=== PATIENT | female | born 1995 | race Caucasian/White ===

== ENCOUNTER 2016-10-07 03:11 | Inpatient (IN) | payer OTHER ==
[~2016-10-07] VITALS: Ht 172.7 cm; Wt 80.0 kg
[2016-10-07] VITALS (7 sets, daily range): BP systolic 101–166; BP diastolic 55–72; PULSE 79–107; RESP 16–22; TEMP 97.5–98.9; O2SAT 98–100
[2016-10-07] MEDS ORDERED: DIPHTH/TETANUS/ACEL PERTUSSIS (BOOSTER) 0.5 ML VIAL/PFS IM ONE (03:15)
[2016-10-07] MEDS ORDERED: ceFAZolin 2 GM PREMIX 50 ML ONE (03:15)
[2016-10-07] MEDS ORDERED: fentaNYL CITRATE 250 MCG/5 ML AMP ONE (03:23)
[2016-10-07] MEDS ORDERED: ETOMIDATE 20 MG/10 ML VIAL ONE (03:35)
[2016-10-07] MEDS ORDERED: IOHEXOL 350 MG/ML 10 ML VIAL (for RAD DIAG) IV ONE (03:35)
[2016-10-07] MEDS ORDERED: LIDOCAINE 1%/EPINEPHrine 1:100,000 SOLN 20 ML VIAL ONE (03:36)
[2016-10-07 03:41] LABS: I-STAT POTASSIUM 4.2 MMOL/L (3.5-4.9)
[2016-10-07 03:42] LABS: AUTOMATED NEUTROPHIL # 6.9 TH/MM3 (1.8-7.7); BASOPHIL # 0.1 TH/MM3 (0-0.2); BASOPHIL % 1.2 % (0.0-2.0); EOSINOPHIL # 0.1 TH/MM3 (0-0.4); EOSINOPHIL % 0.8 % (0.0-4.0); HEMATOCRIT 38.2 % (35.0-46.0); HEMO FLAGS DIFF FINAL; LYMPH % 32.8 % (9.0-44.0); LYMPHOCYTE # 3.8 TH/MM3 (1.0-4.8); MEAN CELL VOLUME 77.3 FL (80.0-100.0); MEAN CORPUSCULAR HEMOGLOBIN 25.1 PG (27.0-34.0); MEAN CORPUSCULAR HGB CONC 32.4 % (32.0-36.0); MONO % 5.8 % (0.0-8.0); NEUT % 59.4 % (16.0-70.0); PLATELET COUNT 411 TH/MM3 (150-450); RED BLOOD COUNT 4.94 MIL/MM3 (4.00-5.30); WHITE BLOOD COUNT 11.5 TH/MM3 (4.0-11.0)
[2016-10-07] MEDS ORDERED: MIDAZOLAM HCL 5 MG/ML VIAL (1 ML) ONE (03:48)
[2016-10-07 03:57] LABS: APTT (PATIENT) 23.1 SEC (24.3-30.1); PROTHROMBIN TIME - PATIENT 11.2 SEC (9.8-11.6)
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
[2016-10-07] MEDS ORDERED: MISCELLANEOUS NURSING INFORMATION XX SCH (04:15)
[2016-10-07] MEDS ORDERED: SODIUM CHLORIDE 0.9% FLUSH 5 ML FLUSH IVF PRN (04:15)
[2016-10-07] MEDS ORDERED: ACETAMINOPHEN/HYDROcodone 325 MG/5 MG TAB PO PRN (04:15)
[2016-10-07] MEDS ORDERED: CHLORHEXIDINE GLUCONATE 2 % 1 PACK (2 CLOTHS) TOP PRN (04:15)
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
--- NOTE | 2016-10-07 04:44 | RADRPT ---
EXAM DATE/TIME: 10/07/2016 03:51 [facility] COMPARISON: CHEST SINGLE AP, October 07, 2016, 3:08. INDICATIONS : Left sided chest tube placement. MEDICAL HISTORY : None. SURGICAL HISTORY : None. ENCOUNTER: Subsequent ACUITY: 1 day PAIN SCORE: Non-responsive. LOCATION: Left chest FINDINGS: Left chest tube present without pneumothorax. No significant effusion identified. Minimal basilar dep endent atelectasis in the lungs. There is air in the left chest wall. CONCLUSION: 1. Placement of left chest tube. No pneumothorax or significant effusion identified. Cyril Rtoh MD on October 07, 2016 at 4:42 Board Certified Radiologist. This report was verified electronically.
[2016-10-07] MEDS ORDERED: MORPHINE SULFATE 4 MG/ML INJ IV PUSH ONE (04:45)
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
[2016-10-07] MEDS: ONDANSETRON HCL 4 MG/2 ML VIAL IV PRN ×2 (04:48→18:26)
[2016-10-07] MEDS: HYDROmorphone HCL PF 1 MG/ML VIAL IVP PRN ×3 (04:49→20:53)
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
[2016-10-07] MEDS: ACETAMINOPHEN/HYDROcodone 325 MG/5 MG TAB PO PRN ×5 (07:36→23:29)
[2016-10-07] MEDS: DOCUSATE SODIUM 50 MG/SENNA 8.6 MG TAB PO SCH ×2 (10:54→20:03)
[2016-10-07] MEDS: FAMOTIDINE 20 MG TAB PO SCH ×2 (10:55→20:03)
[2016-10-07] MEDS: METHOCARBAMOL 500 MG TAB PO SCH ×3 (15:18→23:29)
[2016-10-08 00:05] VITALS: BP 132/74; PULSE 90; RESP 20; TEMP 97.7; O2SAT 100
[2016-10-08] MEDS: HYDROmorphone HCL PF 1 MG/ML VIAL IVP PRN ×3 (00:08→06:12)
[2016-10-08 00:42] VITALS: O2SAT 96
[2016-10-08] MEDS: ONDANSETRON HCL 4 MG/2 ML VIAL IV PRN (03:00)
[2016-10-08] MEDS: ACETAMINOPHEN/HYDROcodone 325 MG/5 MG TAB PO PRN ×5 (03:37→20:45)
[2016-10-08] MEDS ORDERED: CHLORHEXIDINE GLUCONATE 2 % 1 PACK (2 CLOTHS) TOP SCH (04:00)
[2016-10-08 05:41] LABS: AUTOMATED NEUTROPHIL # 5.5 TH/MM3 (1.8-7.7); BASOPHIL % 0.5 % (0.0-2.0); EOSINOPHIL # 0.2 TH/MM3 (0-0.4); EOSINOPHIL % 1.7 % (0.0-4.0); HEMATOCRIT 28.3 % (35.0-46.0); HEMO FLAGS DIFF FINAL; LYMPH % 27.4 % (9.0-44.0); LYMPHOCYTE # 2.6 TH/MM3 (1.0-4.8); MEAN CORPUSCULAR HEMOGLOBIN 25.3 PG (27.0-34.0); MEAN CORPUSCULAR HGB CONC 32.9 % (32.0-36.0); MONO % 12.3 % (0.0-8.0); NEUT % 58.1 % (16.0-70.0); PLATELET COUNT 243 TH/MM3 (150-450); RED BLOOD COUNT 3.68 MIL/MM3 (4.00-5.30); RED CELL DISTRIBUTION WIDTH 17.5 % (11.6-17.2); WHITE BLOOD COUNT 9.5 TH/MM3 (4.0-11.0)
--- NOTE | 2016-10-08 06:20 | RADRPT ---
EXAM DATE/TIME: 10/08/2016 05:39 [facility] COMPARISON: CHEST SINGLE AP, October 07, 2016, 3:51. INDICATIONS : Shortness of breath. MEDICAL HISTORY : Hemothorax. SURGICAL HISTORY : Chest tube. ENCOUNTER: Subsequent ACUITY: 2 days PAIN SCORE: Non-responsive. LOCATION: Bilateral chest FINDINGS: There is a left chest tube with a small left pneumothorax that has developed since October 07. Mild bas ilar airspace disease. Subcutaneous air left chest wall. CONCLUSION: 1. Left chest tube with development of small left-sided pneumothorax since October 07. Cyril Roth MD on October 08, 2016 at 6:18 Board Certified Radiologist. This report was verified electronically.
[2016-10-08 06:38] LABS: ANION GAP 7 MEQ/L (5-15); AST (GOT) 23 U/L (16-38); BICARBONATE 27.9 MEQ/L (21.0-32.0); BLOOD UREA NITROGEN 7 MG/DL (7-18); CHLORIDE 106 MEQ/L (98-107); GLOMERULAR FILTRATION RATE 123 ML/MIN (>89); POTASSIUM 3.4 MEQ/L (3.5-5.1); SODIUM (NA) 141 MEQ/L (136-145)
[2016-10-08 06:44] LABS: ALKALINE PHOSPHATASE 51 U/L (45-117); ALT (GPT) 15 U/L (9-42); BETA HCG QUANT LESS THAN 1 MIU/ML (0-5); TOTAL BILIRUBIN ADULT 0.2 MG/DL (0.2-1.0)
[2016-10-08 08:00] VITALS: BP 122/66; PULSE 104; RESP 17; TEMP 98.6; O2SAT 99
[2016-10-08] MEDS: FAMOTIDINE 20 MG TAB PO SCH ×2 (08:27→20:44)
[2016-10-08] MEDS: METHOCARBAMOL 500 MG TAB PO SCH ×3 (08:27→23:38)
[2016-10-08] MEDS: DOCUSATE SODIUM 50 MG/SENNA 8.6 MG TAB PO SCH ×2 (09:00→20:44)
[2016-10-08 12:00] VITALS: BP 109/56; PULSE 98; RESP 16; TEMP 98.4; O2SAT 98
[2016-10-08 16:00] VITALS: BP 122/56; PULSE 84; RESP 17; TEMP 97.8; O2SAT 98
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
[2016-10-08 20:00] VITALS: BP 121/58; PULSE 82; RESP 16; TEMP 97.6; O2SAT 100
[2016-10-09] VITALS: BP 129/62; PULSE 85; RESP 16; TEMP 97; O2SAT 97
[2016-10-09] MEDS: ACETAMINOPHEN/HYDROcodone 325 MG/5 MG TAB PO PRN ×3 (00:41→12:38)
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
[2016-10-09 08:00] VITALS: BP 119/56; PULSE 89; RESP 18; TEMP 97.3; O2SAT 99
[2016-10-09] MEDS ORDERED: LACTULOSE SYRUP 20 GM/30 ML CUP PO ONE (08:00)
[2016-10-09] MEDS: FAMOTIDINE 20 MG TAB PO SCH (09:06)
[2016-10-09] MEDS: METHOCARBAMOL 500 MG TAB PO SCH ×2 (09:06→16:00)
[2016-10-09] MEDS: DOCUSATE SODIUM 50 MG/SENNA 8.6 MG TAB PO SCH (09:06)
[2016-10-09 12:00] VITALS: BP 104/55; PULSE 73; RESP 12; TEMP 97.8; O2SAT 99
[2016-10-09] MEDS ORDERED: HYDR-3516 PO (15:22)
[2016-10-09 16:00] VITALS: BP 124/59; PULSE 72; RESP 16; TEMP 97.8; O2SAT 100
--- NOTE | 2016-10-09 16:03 | RADRPT ---
EXAM DATE/TIME: 10/09/2016 14:35 [facility] COMPARISON: CHEST SINGLE AP, October 09, 2016, 5:18. INDICATIONS: Post chest tube removal from left side MEDICAL HISTORY: Pneumothorax left side SURGICAL HISTORY: None. ENCOUNTER: Subsequent ACUITY: 3 days PAIN SCORE: 0/10 LOCATION: Left chest FINDINGS: A left chest tube has been removed. There is no recurrent pneumothorax on the left. The heart is st able, lungs are unchanged. CONCLUSION: 1. No recurrent pneumothorax on the left status post removal of chest tube. Jeremy Jones MD on October 09, 2016 at 15:54 Board Certified Radiologist. This report was verified electronically.
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
== END 2016-10-09 18:14 | disposition home or self-care (01) | DRG 200 ==
LOC: NEPI 03:11 → EDBD 04:41 → NEDA 04:41 → N07B 06:28
PROVIDERS: ADMIT Surgery Trauma Surgery; ATTEND Surgery Trauma Surgery
PROC: 0W9B30Z Drainage of Left Pleural Cavity with Drainage Device, Percutaneous Approach (ICD-10-PCS; principal; 2016-10-07)
DX: S27.1XXA Traumatic hemothorax, initial encounter (principal); S21.112A Laceration without foreign body of left front wall of thorax without penetration into thoracic cavity, initial encounter; J93.82 Other air leak; X99.9XXA Assault by unspecified sharp object, initial encounter; Y93.9 Activity, unspecified; Y92.9 Unspecified place or not applicable
CPT/HCPCS: 32551; 71010; 71260; 74177; 80053; 82435; 82565; 82947; 84132; 84295; 84520; 84702; 85025; 85610; 85730; 86850; 86900; 86901; 90471; 90715; 94150; 96361; 96374; 96375; J0690; J1170; J2250; J2405; J3010; Q9967